=== PATIENT | male | born 1955 | race Caucasian/White ===

== ENCOUNTER 2019-08-09 05:36 | Inpatient (IN) | payer BC ==
[~2019-08-09] VITALS: Ht 190.5 cm; Wt 106.0 kg
[2019-08-09] MEDS ORDERED: LACTATED RINGERS 1,000 ML IV SCH (06:08)
[2019-08-09] MEDS ORDERED: MULT-658 PO (06:17)
[2019-08-09] MEDS ORDERED: MUPI22OI2 TP (06:17)
[2019-08-09] MEDS ORDERED: VITAMIN D3 PO (06:17)
[2019-08-09] MEDS ORDERED: VITAMIN E PO (06:17)
[2019-08-09] MEDS ORDERED: FLAX10004 PO (06:17)
[2019-08-09] MEDS ORDERED: CELE200C PO (06:17)
[2019-08-09 06:22] VITALS: BP 127/87
[2019-08-09] MEDS ORDERED: LIDOCAINE-MPF 1%, 2ML INFIL ONE (06:30)
[2019-08-09] MEDS ORDERED: LIDOCAINE/PF 1%-EPI 1:200K, 30 ML ONE (06:53)
[2019-08-09] MEDS ORDERED: BUPIVACAINE/PF 0.25% ONE (06:54)
[2019-08-09] MEDS ORDERED: BACITRACIN 50,000 UNIT ONE (06:54)
[2019-08-09] MEDS ORDERED: BUPIVACAINE/PF-EPI 0.5% 1:200K ONE (06:54)
[2019-08-09] MEDS ORDERED: HEPARIN 1,000 UNITS/ML, 30ML ONE (07:11)
[2019-08-09] MEDS ORDERED: INDIGO CARMINE 0.8%, 5ML ONE (07:11)
[2019-08-09] MEDS ORDERED: FENTANYL PF 100 MCG/2ML ONE ×4 (07:28→13:02)
[2019-08-09] MEDS ORDERED: MIDAZOLAM 1 MG/ML, 2ML ONE (07:28)
[2019-08-09] MEDS ORDERED: REMIFENTANIL 2 MG ONE (07:34)
[2019-08-09] MEDS ORDERED: PROPOFOL 100 ML ONE (07:34)
[2019-08-09] MEDS ORDERED: OXYcodone 5 MG/5 ML ORAL.SOL UDC PO PRN (08:00)
[2019-08-09] MEDS ORDERED: PROMETHAZINE 25 MG/ML, 1ML IV PRN (08:00)
[2019-08-09] MEDS ORDERED: ONDANSETRON 2MG/ML, 2ML IV PRN ×2 (08:00→15:00)
[2019-08-09] MEDS ORDERED: ACETAMINOPHEN 325 MG TABLET PO PRN (08:00)
[2019-08-09] MEDS ORDERED: PROMETHAZINE 25 MG SUPP PR PRN (08:00)
[2019-08-09] MEDS ORDERED: ONDANSETRON ODT 8 MG PO PRN (08:00)
[2019-08-09] MEDS ORDERED: HYDROmorphone 2 MG/ML, 1ML IVPush PRN (08:00)
[2019-08-09] MEDS ORDERED: METHOCARBAMOL 1000MG/10 ML IV ONE ×2 (08:00→12:30)
[2019-08-09] MEDS ORDERED: LORazepam 2 MG/ML, 1ML IVPush PRN (08:00)
[2019-08-09] MEDS ORDERED: EPHEDRINE 50 MG/ML, 1ML ONE (08:01)
[2019-08-09] MEDS ORDERED: ROCURONIUM 10MG/ML,5ML ONE (10:32)
[2019-08-09] MEDS ORDERED: GLYCOPYRROLATE 0.2MG/1ML, 5ML ONE (10:32)
[2019-08-09] MEDS ORDERED: NEOSTIGMINE 1 MG/ML, 10ML ONE (10:32)
[2019-08-09] MEDS ORDERED: PROPOFOL 10 MG/ML, 20ML ONE (10:32)
[2019-08-09] MEDS ORDERED: ONDANSETRON 2MG/ML, 2ML ONE (10:32)
[2019-08-09] MEDS ORDERED: SUCCINYLCHOLINE 20 MG/ML, 10ML ONE (10:32)
[2019-08-09] MEDS ORDERED: CEFAZOLIN 1,000 MG ONE (10:32)
[2019-08-09] MEDS ORDERED: DEXAMETHASONE 4 MG/ML, 1ML ONE ×3 (10:32)
[2019-08-09] MEDS ORDERED: VANCOMYCIN 1,000 MG ONE (10:39)
[2019-08-09] MEDS ORDERED: methylPREDNISolone*ACETATE* 80 MG/ML ONE (10:42)
[2019-08-09] MEDS ORDERED: methylPREDNISolone *ACETATE* 40 MG/ML ONE (10:42)
[2019-08-09] MEDS: FENTANYL PF 100 MCG/2ML IV PRN ×4 (12:16→13:04)
[2019-08-09] MEDS: METHOCARBAMOL 1,000 MG in DEXTROSE 5% 100 ML IV ONE ×2 (12:28→12:30)
[2019-08-09] MEDS ORDERED: ACETAMINOPHEN 650 MG/20.3 ML UDC ONE (12:42)
[2019-08-09] MEDS ORDERED: OXYcodone 5 MG/5 ML ORAL.SOL UDC ONE (12:42)
[2019-08-09 13:35] VITALS: BP 144/76
[2019-08-09] MEDS ORDERED: morphine SULFATE 10 MG/ML, 1ML IV PRN (15:00)
[2019-08-09] MEDS ORDERED: DIPHENHYDRAMINE 50 MG/ML, 1ML IVPush PRN (15:00)
[2019-08-09] MEDS ORDERED: LABETALOL 5MG/ML, 20ML IV PRN (15:00)
[2019-08-09] MEDS ORDERED: PROMETHAZINE 25 MG/ML, 1ML IM PRN (15:00)
[2019-08-09] MEDS: D5%-0.9% NACL+KCL 20MEQ 1,000 ML IV SCH (15:51)
[2019-08-09] MEDS: DEXAMETHASONE 4 MG/ML, 1ML IV SCH ×2 (15:51→21:03)
[2019-08-09] MEDS: CEFAZOLIN PMX 1GM/50ML 50 ML IVPB SCH (15:51)
[2019-08-09 19:12] VITALS: BP 127/76
[2019-08-09] MEDS: OXYcodone/APAP 5/325MG TABLET PO PRN (19:45)
[2019-08-09] MEDS: METHOCARBAMOL 750 MG in DEXTROSE 5% 100 ML IV SCH (21:03)
[2019-08-09 23:11] VITALS: BP 134/74
[2019-08-10] MEDS: CEFAZOLIN PMX 1GM/50ML 50 ML IVPB SCH ×2 (00:03→07:44)
[2019-08-10] MEDS: D5%-0.9% NACL+KCL 20MEQ 1,000 ML IV SCH ×3 (00:06→11:00)
[2019-08-10 00:15] VITALS: BP 134/81
[2019-08-10] MEDS: DEXAMETHASONE 4 MG/ML, 1ML IV SCH (04:02)
[2019-08-10 04:05] VITALS: BP 128/80
[2019-08-10] MEDS: OXYcodone/APAP 5/325MG TABLET PO PRN ×2 (06:04→12:06)
[2019-08-10] MEDS: METHOCARBAMOL 750 MG in DEXTROSE 5% 100 ML IV SCH ×2 (06:15→12:06)
[2019-08-10 07:19] VITALS: BP 134/80
[2019-08-10] MEDS ORDERED: SENNA/DOCUSATE TABLET PO SCH (09:00)
[2019-08-10 13:24] VITALS: BP 130/70
[2019-08-11] MEDS ORDERED: METHOCARBAMOL 750 MG TABLET PO PRN (20:30)
== END 2019-08-10 16:05 | disposition home or self-care (01) | DRG 472 ==
LOC: OUT 05:36 → 4NE 13:55 → OUT 13:57 → 4NE 14:00
PROVIDERS: ADMIT Orthopaedic Surgery Orthopaedic Surgery of the Spine; ATTEND Orthopaedic Surgery Orthopaedic Surgery of the Spine
PROC: 0RB30ZZ Excision of Cervical Vertebral Disc, Open Approach (ICD-10-PCS; 2019-08-09)
PROC: 0RG20A0 Fusion of 2 or more Cervical Vertebral Joints with Interbody Fusion Device, Anterior Approach, Anterior Column, Open Approach (ICD-10-PCS; principal; 2019-08-09 07:30)
DX: M48.02 Spinal stenosis, cervical region (principal); G95.9 Disease of spinal cord, unspecified; M40.209 Unspecified kyphosis, site unspecified; M54.12 Radiculopathy, cervical region; I10 Essential (primary) hypertension
CPT/HCPCS: 72040; J3490; 95938; 95941; C1713; G0378; J0690; J1100; J1644; J2250; J2405; J2704; J2710; J3010; J3370; C1762; C1889; J0330; J1030; J1040; J2800; J3480; J7120